=== PATIENT | male | born 1970 | race Caucasian/White ===

== ENCOUNTER 2024-05-06 10:07 | Day surgery (SDC) | payer OTHER, SELFPAY ==
[2024-05-02 12:18] LABS: PT Prothrombin Time 11.5 SECONDS (9.4-12.5); Protime INR 1.03
[2024-05-02 12:20] LABS: Absolute Eosinophils 0.1 K/uL (0-0.5); Absolute Lymphocytes (CBC) 1.8 K/uL (0.7-4.9); Absolute Monocytes 0.5 K/uL (0.1-1.3); Absolute Neutrophil 4.4 K/uL (1.8-8.0); Basophils % 0.4 % (0-1.3); Eosinophils % 1.5 % (0-4.4); Hematocrit 46.8 % (39.6-49.0); Hemoglobin 15.6 g/dL (13.6-17.9); Lymphocytes % 26.8 % (15.3-44.8); MCH 28.5 pg (27.0-35.0); MCHC 33.4 g/dL (32.0-36.0); MCV 85.4 fL (80-100); MPV 8.3 fL (7.6-11.3); Monocytes % 7.6 % (3.3-12.3); Neutrophils % 63.7 % (41.7-73.7); Nucleated Red Blood Cells % 0.1 % (0-0); Platelets 241 thou/uL (152-406); RBC Red Blood Cell Count 5.47 M/uL (4.33-5.43); Red Cell Distribution Width 14.8 % (12.1-15.2)
[2024-05-02 12:26] LABS: Anion Gap 6.6 mEq/L (5.0-15.0); Potassium 3.6 mEq/L (3.5-5.1)
--- NOTE | 2024-05-02 12:33 | RAD REPORT ---
Procedure: Chest Single View History: Preop for genitourinary surgery Comparison: none Findings: The lungs appear clear of acute infiltrate. No significant pleural effusion noted. The heart is normal size. IMPRESSION: No acute abnormality is displayed.
--- NOTE | 2024-05-02 14:05 | EKG ---
Test Date: 2024-05-02 Test Time: 12:07:02 Shactor: KOLE MEASUREMENT RESULTS: Intervals: Rate: 55 IA: 172 QRSD: 90 QT: 386 QTc: 369 Jansen: P: 44 IA: 172 QRS: 20 T: 60 INTERPRETIVE STATEMENTS: Sinus bradycardia Otherwise normal ECG No previous ECG available for comparison Electronically Signed On 05-02-24 14:05:18 CDT by Jamil Azevedo
[2024-05-06] MEDS: Ringers Lactate 1,000 ML IV ONE ×2 (10:20→14:55)
[2024-05-06] MEDS ORDERED: LIDOCAINE 1% MPF 5 ML VIAL ONE (12:19)
[2024-05-06] MEDS ORDERED: propofoL 200 MG/20 ML VIAL IV ONE (12:19)
[2024-05-06] MEDS ORDERED: FENTANYL CITR 100 MCG/2 ML ONE ×2 (12:19→13:30)
[2024-05-06] MEDS ORDERED: MIDAZOLAM HCL 2 MG/2 ML INJ ONE (12:19)
[2024-05-06] MEDS ORDERED: KETOROLAC 30 MG/ML INJ ONE (12:51)
[2024-05-06] MEDS ORDERED: AMPICILLIN SODIUM 2 GM in NA CHLORIDE 0.9% 100 ML IVPB ONE (13:00)
[2024-05-06] MEDS: AMPICILLIN SODIUM 2 GM/VIAL VIAL ONE (13:00)
[2024-05-06] MEDS: Gentamicin Inj 240 MG in NA CHLORIDE 0.9% 100 ML IVPB ONE (13:01)
[2024-05-06 15:39] VITALS: O2SAT 100
--- NOTE | 2024-05-06 15:47 | P.OP ---
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 He also was found to have an elevated PSA and low-grade prostate cancer on biopsy in the setting of a markedly enlarged prostate well over 120 g. He elected to proceed with management of his obstructive LUTS via TURP recognizing he had the option to proceed with radical prostatectomy to manage both the prostate cancer and the obstructive LUTS. He elected to manage the obstruction and remain on active surveillance for his prostate cancer. Procedure note: Patient was consented in the preoperative holding area before being transferred to the operative suite where general anesthesia was induced. He was given ampicillin 2 g and gentamicin 240 mg IV antimicrobial prophylaxis, and pneumoboots were provided for DVT prophylaxis. He was placed in the lithotomy position, padded and secured to the table appropriately. His genitalia was prepped with Hibiclens and he was draped in standard fashion. This was done after the indwelling urethral Tam catheter was removed. The case was begun using the 26 [place]ian bipolar Olympus resectoscope sheath and a visual obturator and used to traverse the urethra and into the bladder with relative ease. Massive intraluminal projection of lateral lobar hypertrophy with an elevated median bar and intravesical projection of a median lobe abutting the trigone was again observed. I decompressed his bladder of fluid and urine and switched the visual obturator for a resectoscope loop. Using normal saline, bipolar resection of the prostate was then begun targeting the median lobe abutting the trigone and keeping the right ureteral orifice and trigone and vision. I then resected the overhanging component of the median lobe extending across the inferior component of the bladder neck until all intravesical projecting components of the median lobe had been resected. Of note, significant formed bladder calculi were seen owing to the presence of the indwelling urethral Tam catheter. I left these for the end of the case. I then continued the resection of the prostate leveling down until the bladder neck was essentially almost level with the trigone. I then continued the resection to create a smooth trough down to the level of the verumontanum. Resection was then continued starting in the left lateral lobe at the bladder neck extending from inferior to anterior and then extending into the mid zone of the prostate from into inferior to anterior on the left side before ultimately getting to the apex of the prostate on the left side from inferior to anterior. Once a good deal of resection had been performed, I then began resecting the right side of the prostate in a similar fashion as described on the left. Significant hematuria was present during this time requiring several rounds of Ilich evacuation and bladder decompression. However once a significant component of the prostate had been resected, I then went about obtaining hemostasis even though I had pe rformed spot hemostatic fulguration throughout the initial resection process. I then continued the resection each time focusing on resecting the prostate once the bladder was completely decompressed and the prostate fossa would collapse revealing the degree of residual adenoma. This was resected from posterior to anterior including the lateral lobes and anterior overhanging tissue from the bladder neck all the way to the verumontanum and ultimately removing any kissing lateral lobar hypertrophy at the apex of the prostate at the verumontanum. Over 2 hours of resection was performed in this extensive bipolar TURP. Ultimately, all prostate chips were Ellik evacuated from his bladder, and I then achieved extensive hemostasis throughout the entirety of the prostate fossa resected. Once hemostatic to the point of essentially minimal oozing with no fluid and flow, I then switched the bipolar resection loop for the stone occupational therapy manager device and grasped and broke up all of the formed calculi present within his bladder into dust small enough to be removed using an Ilich evacuator or directly visualized and removed using the resectoscope. Once all formed calculi fragments had been removed and sent for pathologic analysis, I then ensured to complete any residual intraluminal bumps of adenoma until the prostate fossa was ostensibly widely patent from the verumontanum into the bladder neck. I then ensured to remove all residual prostate chips and then fulgurated any oozing vessels until completely hemostatic. I then retrograde filled his bladder removing the cystoscope surveying on the way out and ensuring to remove all prostate chips that may have fallen into the bulbar urethra. I then removed the resectoscope and then passed a 22 [place]ian three-way Tam catheter via his urethra into his bladder with ease placing 30 cc of sterile water in the balloon. The drainage of fluid was minimally pink to clear, and it was connected to a floor bag. The catheter was connected to slow drip CBI, and he was taken out of the lithotomy position. I then placed the catheter to the degree of moderate traction for added hemostasis and the patient was awakened from general anesthesia before being transferred to a stretcher. He was then transferred to the recovery room in good condition. Complications: None Discharge disposition: He will be standard TURP pathway with a voiding trial on Sunday. He is on amoxicillin clavulanic acid therapy started prior to surgery. Subsequent follow-up should be established with me in about 3 months time and he should obtain a PSA about 1 week prior to that appointment in follow-up of his known low-grade low risk prostate cancer.
[2024-05-06] MEDS: oxyBUTYnin chloride 5 MG TAB PO ONE (15:51)
[2024-05-06] MEDS ORDERED: PHENAZOPYRIDINE 100MG TAB PO ONE (16:41)
[2024-05-06] MEDS ORDERED: OXYBUTYNIN ER 5 MG TAB PO ONE (16:41)
[2024-05-06] MEDS ORDERED: HYDROCODONE/APAP 5/325 MG TAB ONE (16:41)
[2024-05-06] MEDS: HYDROCODONE/APAP 5/325 MG TAB PO ONE (16:48)
[2024-05-06] MEDS: PHENAZOPYRIDINE 100MG TAB PO ONE (16:49)
[2024-05-06 17:49] VITALS: BP 124/85; TEMP 98.3
== END 2024-05-06 17:48 | disposition home or self-care (01) ==
LOC: OR 10:07
PROVIDERS: ATTEND Urology
PROC: 0TFB8ZZ Fragmentation in Bladder, Via Natural or Artificial Opening Endoscopic (ICD-10-PCS; 2024-05-06)
PROC: 0VT08ZZ Resection of Prostate, Via Natural or Artificial Opening Endoscopic (ICD-10-PCS; principal; 2024-05-06 11:15)
DX: N40.1 Benign prostatic hyperplasia with lower urinary tract symptoms (principal); R33.8 Other retention of urine; N21.0 Calculus in bladder; C61 Malignant neoplasm of prostate
CPT/HCPCS: 52601; 52317; 93005; 87088; 85025; 87086; 80048; 36415; 85610; 88300; 88305; 87077 ×2; 87186 ×2; 82360; 71045; J2704; J2001; J1580; J2250; J3010 ×2; J0290 ×2; J7120 ×2